=== PATIENT | male | born 1985 | race Caucasian/White ===

== ENCOUNTER 2020-08-18 07:27 | Outpatient (REF) | payer OTHER, SELFPAY | END 2020-08-18 07:28 | disposition home or self-care (01) | LOC: HO.LAB 07:27 | PROVIDERS: PCP Hospitalist; Visit Provider Internal Medicine | DX: Z20.822 Contact with and (suspected) exposure to COVID-19 (principal) | CPT/HCPCS: 36415; C9803; U0003 ==

== ENCOUNTER 2020-08-22 08:38 | Outpatient (REF) | payer OTHER, SELFPAY | END 2020-08-22 08:39 | disposition home or self-care (01) | LOC: HO.LAB 08:38 | PROVIDERS: PCP Hospitalist; Visit Provider Internal Medicine | DX: Z20.822 Contact with and (suspected) exposure to COVID-19 (principal) | CPT/HCPCS: 36415; C9803; U0003 ==

== ENCOUNTER 2020-08-27 16:54 | Outpatient (REF) | payer OTHER, SELFPAY | END 2020-08-27 16:55 | disposition home or self-care (01) | LOC: HO.LAB 16:54 | PROVIDERS: Visit Provider Internal Medicine | DX: Z20.822 Contact with and (suspected) exposure to COVID-19 (principal) | CPT/HCPCS: 36415; C9803; U0003 ==

== ENCOUNTER 2022-07-28 04:45 | Emergency (ER) | payer OTHER, SELFPAY ==
[2022-07-28 04:59] VITALS: BP 137/78; PULSE 65; RESP 17; TEMP 36.9; O2SAT 98; BMI 26.9
--- NOTE | 2022-07-28 05:37 | ED.URI ---
HPI - URI/Sore Throat General Chief Complaint: Upper Respiratory Symptoms Stated Complaint: flu like symptoms, tested - for COVID Time Seen by Provider: 07/28/22 05:37 Source: patient Mode of arrival: ambulatory Limitations: no limitations History of Present Illness HPI Narrative: Patient not vaccinated against COVID or flu complaining of mild nasal congestion had a COVID exposure at work no shortness of breath no fever or chills patient does have history of asthma symptoms started about 3 days ago Related Data Previous Rx's Medication Instructions Recorded codeine 10 mg-guaifenesin 100 mg/5 10 ml PO Q6H PRN cough #237 mL 07/28/22 mL oral liquid prednisone 20 mg tablet 40 mg PO DAILY #10 tabs 07/28/22 Allergies Allergy/AdvReac Type Severity Reaction Status Date / Time No Known Allergies* Allergy Uncoded 05/06/20 08:18 Review of Systems Review of Systems: Yes all other systems are reviewed and are negative PMFSH Social History Social History Advance Directives: No Advance Directives Information Provided: No Physical Exam Vital Signs: Vital Signs: Last Vital Signs Temp 98.4 F 07/28/22 04:59 Pulse 65 07/28/22 04:59 Resp 17 07/28/22 04:59 BP 137/78 07/28/22 04:59 Pulse Ox 98 07/28/22 04:59 O2 Del Method 07/28/22 04:59 BMI result Body Mass Index 26.9 Appearance: Alert. Oriented X3. No acute distress. ENT: Pharynx normal. Oral Mucosa moist Neck: Normal inspection. Neck supple. CVS: Normal heart rate and rhythm. Pulses normal. Respiratory: No respiratory distress. Equal air entry bilateral, no wheezing/rales/rhonchi Skin: Skin warm and dry. Normal skin color. Normal skin turgor. Extremities: No lower extremity edema. Neuro: Oriented X 3. Medical Decision Making Lab Data Labs: Lab Results 07/28/22 Range/Units 05:07 Influenza Type A (PCR) POSITIVE A (Negative) Influenza Type B (PCR) NEGATIVE (Negative) RSV RNA Qual (PCR) NEGATIVE (Negative) SARS-CoV-2 RNA (RT-PCR) NEGATIVE (Negative) Discharge Plan Discharge Clinical Impression: Influenza Patient Disposition: Home, Self-Care Instructions: Influenza (ED) Additional Instructions: Continue to use your inhaler Cough syrup and prednisone as prescribed Social distancing as advised Prescriptions: New prednisone 20 mg tablet 40 mg PO DAILY Qty: 10 0RF codeine-guaifenesin 10-100 mg/5 mL liquid 10 ml PO Q6H PRN (Reason: cough) Qty: 237 0RF
--- OUTSIDE RECORDS SUMMARY | 2022-07-28 05:46 | XMS_ITS | Continuity of Care Document ---
:1985 Author Organization [facility] Adult Address [address] [place] [address]- Care Team Providers Name Role Phone Domingo Le MD Primary Care Physician Encounter [facility] Date(s): 08/06/21 - 09/05/21 [facility] Adult [address] [place] [address]- Allergies, Adverse Reactions, Alerts No Known Allergies Immunizations Given and Recorded Vaccine Date Status Refusal Reason Hepatitis A Adult Vaccine1 08/08/14 Given Diphtheria/Tet/Pertussis, Acel (oldterm)2 08/08/14 Given Not Given Vaccine Date Status Refusal Reason Influenza Virus Vaccine (oldterm) 07/18/19 Not Given Patient Refuses Influenza Virus Vaccine (oldterm) 05/25/19 Not Given Patient Refuses 1Admin Note: at [id number] Note: at work Medications albuterol CFC free 90 mcg/inh inhalation aerosol 2, puffs, Inhalation, Every 4 hours, PRN, # 18 Gm, Refills 0, Tot. Refills 0, Maintenance, 12/07/19 12:18:00 EDT, Aerosol, Route to Pharmacy Electronically, [id number], [facility]/pharmacy #[id number], 186.5, cm, 07/18/19 15:37:00 EST, He... Start Date: 12/07/19 Status: OrderedMultivitamin 1 tab, By Mouth, Daily, 0 Refills, Maintenance, 09/09/20 15:37:00 EST, Partial fill upon patient request if the prescription is for a schedule II opioid drug. 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
--- OUTSIDE RECORDS SUMMARY | 2022-07-28 05:46 | XMS_ITS | Continuity of Care Document ---
:1985 Author Organization [facility] Address [address] [place] [address] Drive [address] [place] [address]- Care Team Providers Name Role Phone Colton Godinez MD Primary Care Physician [facility]counter [facility] Date(s): 09/24/20 - 10/24/[address] [place] [address] Allergies, Adverse Reactions, Alerts Substance Reaction Severity Status NKA Active Immunizations Given and Recorded Vaccine Date Status Refusal Reason Hepatitis A Adult Vaccine1 08/08/14 Given Diphtheria/Tet/Pertussis, Acel (oldterm)2 08/08/14 Given Not Given Vaccine Date Status Refusal Reason Influenza Virus Vaccine (oldterm) 07/18/19 Not Given Patient Refuses Influenza Virus Vaccine (oldterm) 05/25/19 Not Given Patient Refuses 1Admin Note: at [email or web address] Note: at work Medications albuterol CFC free 90 mcg/inh inhalation aerosol 2, puffs, Inhalation, Every 4 hours, PRN, # 18 Gm, Refills 0, Tot. Refills 0, Maintenance, 12/07/19 12:18:00 EDT, Aerosol, Route to Pharmacy Electronically, [id number], [facility]/pharmacy #[id number], 186.5, cm, 07/18/19 15:37:00 EST, He... Start Date: 12/07/19 Status: OrderedColace sodium 100 mg oral capsule 100 mg, 1, capsule, By Mouth, 2 times a day, PRN, # 60 capsule, Refills 6, Tot. Refills 6, Maintenance, for constipation, 09/16/20 7:33:00 EST, Route to Pharmacy Electronically, [facility]/pharmacy #[id number], Partial fill upon patient request if the prescription... Start Date: 09/16/20 Stop Date: 04/14/21 Status: OrderedMisc Rx nootropic- supplement 1 tab, By Mouth, Daily, Refills 0, Maintenance, 09/09/20 15:38:00 EST, Supply Start Date: 09/09/20 Status: OrderedMultivitamin 1 tab, By Mouth, Daily, 0 Refills, Maintenance, 09/09/20 15:37:00 EST, Partial fill upon patient request if the prescription is for a schedule II opioid drug. Start Date: 09/09/20 Status: OrderedValium 5 mg oral tablet 5 mg, 1, tablet, By Mouth, Every 8 hours, PRN, 1 TABLET EVERY 8 HOURS FOR ANAL SPASM DO NOT TAKE AT THE SAME TIME OXYCODONE, # 42 tablet, Refills 0, Tot. Refills 0, Maintenance, Spasm, 09/16/20 7:33:00 EST, Route to Pharmacy Electronically, [facility] Start Date: 09/16/20 Stop Date: 09/30/20 Status: Ordered Problem List Condition Effective Dates [...]
--- OUTSIDE RECORDS SUMMARY | 2022-07-28 05:46 | XMS_ITS | Continuity of Care Document ---
:1985 Author Organization [facility] Address [address] [place] [address]- Care Team Providers Name Role Phone Herbert FARIA, Colton Ricardo Primary Care Physician Encounter [facility] Date(s): 06/06/19 - 08/08/[address] [address]- [facility] Attending Physician: Silvio Foss MD Allergies, Adverse Reactions, Alerts Substance Reaction Severity Status NKA Active Immunizations Given and Recorded Vaccine Date Status Refusal Reason Hepatitis A Adult Vaccine1 08/08/14 Given Diphtheria/Tet/Pertussis, Acel (oldterm)2 08/08/14 Given Not Given Vaccine Date Status Refusal Reason Influenza Virus Vaccine (oldterm) 07/18/19 Not Given Patient Refuses Influenza Virus Vaccine (oldterm) 05/25/19 Not Given Patient Refuses 1Admin Note: at [id number] Note: at work Medications Azithromycin 5 Day Dose Pack 250 mg oral tablet 1 pack/packet, By Mouth, Once, as directed on package labeling, # 6 tablet, 0 Refills, Soft Stop, 07/18/19 15:48:25 EST, Tablet, 186.5, cm, 07/18/19 15:37:37 EST, Height Start Date: 07/18/19 Status: Ordered Problem List Condition Effective Dates [...]
--- OUTSIDE RECORDS SUMMARY | 2022-07-28 05:46 | XMS_ITS | Continuity of Care Document ---
:1985 Author Organization [facility] Adult Address [address] [place] [address]- Care Team Providers Name Role Phone Herbert FARIA, Colton Ricardo Primary Care Physician Encounter [facility] Date(s): 05/14/21 - 06/13/21 [facility] Adult [address] [place] [address]- Attending Physician: Ronan Arana Admitting Physician: Ronan Arana Referring Physician: AdmtrRonan Allergies, Adverse Reactions, Alerts Substance Reaction Severity Status NKA Active Immunizations Given and Recorded Vaccine Date Status Refusal Reason Hepatitis A Adult Vaccine1 08/08/14 Given Diphtheria/Tet/Pertussis, Acel (oldterm)2 08/08/14 Given Not Given Vaccine Date Status Refusal Reason Influenza Virus Vaccine (oldterm) 07/18/19 Not Given Patient Refuses Influenza Virus Vaccine (oldterm) 05/25/19 Not Given Patient Refuses 1Admin Note: at [id number] Note: at work Medications albuterol CFC free 90 mcg/inh inhalation aerosol 2, puffs, Inhalation, Every 4 hours, PRN, # 18 Gm, Refills 0, Tot. Refills 0, Maintenance, 12/07/19 12:18:00 EDT, Aerosol, Route to Pharmacy Electronically, [id number], [facility]/pharmacy #[id number], 186.5, cm, 07/18/19 15:37:00 EST, He... [...]
--- OUTSIDE RECORDS SUMMARY | 2022-07-28 05:46 | XMS_ITS | Continuity of Care Document ---
:1985 Author Organization [facility] Adult Address [address] [place] [address]- Care Team Providers Name Role Phone Domingo Le MD Primary Care Physician Encounter [facility] Date(s): 06/25/22 - 07/25/22 [facility] Adult [address] [place] [address]- Attending Physician: Ronan Arana Admitting Physician: AdmtrRonan Referring Physician: Admtr, ArNorma Allergies, Adverse Reactions, Alerts No Known Allergies Immunizations Given and Recorded Vaccine Date Status Refusal Reason Hepatitis A Adult Vaccine1 08/08/14 Given Diphtheria/Tet/Pertussis, Acel (oldterm)2 08/08/14 Given Not Given Vaccine Date Status Refusal Reason Influenza Virus Vaccine (oldterm) 07/18/19 Not Given Patient Refuses Influenza Virus Vaccine (oldterm) 05/25/19 Not Given Patient Refuses 1Admin Note: at [id number] Note: at work Medications albuterol CFC free 90 mcg/inh inhalation aerosol 2, puffs, Inhalation, Every 4 hours, PRN, # 18 Gm, Refills 2, Tot. Refills 2, Maintenance, 09/30/21 11:59:00 EST, Aerosol, Route to Pharmacy Electronically, [id number], [facility]/pharmacy #[id number], 187.96, cm, 05/14/21 12:29:00 EDT, H... Start Date: 09/30/21 Status: OrderedMultivitamin 1 tab, By Mouth, Daily, 0 Refills, Maintenance, 09/09/20 15:37:00 EST, Partial fill upon patient request if the prescription is for a schedule II opioid drug. Start Date: 09/09/20 Status: Ordered Problem List Condition Confirmation Course Effective Dates Status Health Stat us Informant Anal skin tag Confirmed Active Anterior romero Confirmed Active splints Chronic low back Confirmed Active pain History of epilepsy Confirmed Active - no sz since age 20, pubertal History of Confirmed Active pneumonia IBS (irritable Confirmed Active bowel syndrome) Lactose intolerance Confirmed Active Otitis media of Confirmed Active left ear Lumbar disc Confirmed Active herniation - L4/5 Reactive Confirmed Active hypoglycemia Left sided sciatica Confirmed Active Testicular mass Confirmed Active Social History Social History Type Response Smoking Status Former smoker entered on: 12/30/15 Sex Note Event Display: Ultrasound Pelvis, Non-BH Authored Date: Event Display: Ultrasound Abdomen, Non- Authored Date: Event Display: Non Lab Results Authored Date: Event Display: Non Lab Results Authored Date: Patient Care team information Care Team PersonnelName: Mimi FARIA, Domingo Meléndez Position: [facility] Primary Care Physician Member Role: PCP Address: Address: [address] [place] [address]- Care Team Related PersonsName: PHIL SOTO Address: home [address] [facility], [id number]
--- OUTSIDE RECORDS SUMMARY | 2022-07-28 05:46 | XMS_ITS | Continuity of Care Document ---
:1985 Author Organization [facility] Address [address] [place] [address] Drive [address] [place] [address]- Care Team Providers Name Role Phone Colton Godinez MD Primary Care Physician Encounter [facility] Date(s): 10/27/20 - 11/03/[address] [place] [address]- Encounter Diagnosis Anal skin tag (Discharge Diagnosis) - 10/27/20 Attending Physician: Silvio Foss MD Referring Physician: Colton Godinez MD Allergies, Adverse Reactions, Alerts Substance Reaction Severity Status NKA Active Immunizations Given and Recorded Vaccine Date Status Refusal Reason Hepatitis A Adult Vaccine1 08/08/14 Given Diphtheria/Tet/Pertussis, Acel (oldterm)2 08/08/14 Given Not Given Vaccine Date Status Refusal Reason Influenza Virus Vaccine (oldterm) 07/18/19 Not Given Patient Refuses Influenza Virus Vaccine (oldterm) 05/25/19 Not Given Patient Refuses 1Admin Note: at [id number] Note: at work Medications albuterol CFC free 90 mcg/inh inhalation aerosol 2, puffs, Inhalation, Every 4 hours, PRN, # 18 Gm, Refills 0, Tot. Refills 0, Maintenance, 12/07/19 12:18:00 EDT, Aerosol, Route to Pharmacy Electronically, [id number], [facility]/pharmacy #[id number], 186.5, cm, 07/18/19 15:37:00 EST, He... Start Date: 12/07/19 Status: OrderedColace sodium 100 mg oral capsule 100 mg, 1, capsule, By Mouth, 2 times a day, PRN, # 60 capsule, Refills 6, Tot. Refills 6, Maintenance, for constipation, 09/16/20 7:33:00 EST, Route to Pharmacy Electronically, [facility]/pharmacy #[id number], Partial fill upon patient request if [...] herniation - Active L4/5(Confirmed) Testicular mass(Confirmed) Active Diagnosis Diagnosis Type Effective Dates Health Status Clinical In formant Service Anal skin tag Discharge 10/27/20 Diagnosis Social History Social History Type Response Smoking Status Former smoker entered on: 12/30/15 Sex
--- OUTSIDE RECORDS SUMMARY | 2022-07-28 05:46 | XMS_ITS | Continuity of Care Document ---
:1985 Author Organization [facility] Adult Address [address] [place] [address]- Care Team Providers Name Role Phone Mimi FARIA, Domingo Meléndez Primary Care Physician Encounter [facility] Date(s): 12/04/21 - 12/11/21 [facility] Adult [address] [place] [address]- Encounter Diagnosis Dry skin (Discharge Diagnosis) - 12/08/21 Attending Physician: Nicole Caceres Referring Physician: Domingo Le MD Allergies, Adverse Reactions, Alerts No Known Allergies Immunizations Given and Recorded Vaccine Date Status Refusal Reason Hepatitis A Adult Vaccine1 08/08/14 Given Diphtheria/Tet/Pertussis, Acel (oldterm)2 08/08/14 Given Not Given Vaccine Date Status Refusal Reason Influenza Virus Vaccine (oldterm) 07/18/19 Not Given Patient Refuses Influenza Virus Vaccine (oldterm) 05/25/19 Not Given Patient Refuses 1Admin Note: at [id number] Note: at work Medications albuterol CFC free 90 mcg/inh inhalation aerosol 2, puffs, Inhalation, Every 4 hours, PRN, # 18 Gm, Refills 2, Tot. Refills 2, Maintenance, 09/30/21 11:59:00 EST, Aerosol, Route to Pharmacy Electronically, [id number], [facility]/pharmacy #[id number], 187.96, cm, 05/14/21 12:29:00 EDT, [...] Diagnosis Type Effective Dates Health Status Clinical Serv ice Informant Dry skin Discharge 12/08/21 Diagnosis Vital Signs Most recent to oldest [Reference Range]: 1 Height 187.96 cm (12/04/21 12:46 PM) Weight 99.4 kg (12/04/21 12:46 PM) Oxygen Saturation [94-100 %] 100 % (12/04/21 12:46 PM) Pulse Rate [55-90 bpm] 72 bpm (12/04/21 12:46 PM) Body Mass Index [18.5-24.99] 28.14 *H* (12/04/21 12:46 PM) Blood Pressure [90-138/55-84 mm Hg] 125/70 mm Hg (12/04/21 12:46 PM) Weight Obtained Via Standing scale (12/04/21 12:46 PM) Social History Social History Type Response Smoking Status Former smoker entered on: 12/30/15 Sex
--- OUTSIDE RECORDS SUMMARY | 2022-07-28 05:46 | XMS_ITS | Continuity of Care Document ---
:1985 Author Organization [facility] Adult Address [address] [place] [address]- Care Team Providers Name Role Phone Colton Godinez MD Primary Care Physician [facility]counter [facility] Date(s): 12/05/19 - 12/12/19 [facility] Adult [address] [place] [address]- [facility] Attending Physician: Colton Godinez MD Allergies, Adverse Reactions, Alerts Substance Reaction Severity Status NKA Active Immunizations Given and Recorded Vaccine Date Status Refusal Reason Hepatitis A Adult Vaccine1 08/08/14 Given Diphtheria/Tet/Pertussis, Acel (oldterm)2 08/08/14 Given Not Given Vaccine Date Status Refusal Reason Influenza Virus Vaccine (oldterm) 07/18/19 Not Given Patient Refuses Influenza Virus Vaccine (oldterm) 05/25/19 Not Given Patient Refuses 1Admin Note: at [id number] Note: at work Medications albuterol CFC free 90 mcg/inh inhalation aerosol 2, puffs, Inhalation, Every 4 hours, PRN, # 18 Gm, Refills 0, Tot. Refills 0, Maintenance, 12/07/19 12:18:00 EDT, Aerosol, Route to Pharmacy Electronically, [id number], [facility]/pharmacy #[id number], 186.5, cm, 07/18/19 15:37:00 EST, He... Start Date: 12/07/19 Status: Ordered Problem List Condition Effective Dates [...]
--- OUTSIDE RECORDS SUMMARY | 2022-07-28 05:46 | XMS_ITS | Continuity of Care Document ---
:1985 Author Organization [facility] Adult Address [address] [place] [address]- Care Team Providers Name Role Phone Colton Godinez MD Primary Care Physician Encounter [facility] Date(s): 12/12/20 - 01/11/21 [facility] Adult [address] [place] [address]- Attending Physician: AdmRonan franklin Admitting Physician: AdmtrRonan Referring Physician: Admtr, ArNorma Allergies, Adverse Reactions, Alerts Substance Reaction Severity Status NKA Active Immunizations Given and Recorded Vaccine Date Status Refusal Reason Hepatitis A Adult Vaccine1 08/08/14 Given Diphtheria/Tet/Pertussis, Acel (oldterm)2 08/08/14 Given Not Given Vaccine Date Status Refusal Reason Influenza Virus Vaccine (oldterm) 07/18/19 Not Given Patient Refuses Influenza Virus Vaccine (oldterm) 05/25/19 Not Given Patient Refuses 1Admin Note: at [id number] Note: at work Medications albuterol CFC free 90 mcg/inh inhalation aerosol 2, puffs, Inhalation, Every 4 hours, PRN, # 18 Gm, Refills 0, Tot. Refills 0, Maintenance, 12/07/19 12:18:00 EDT, Aerosol, Route to Pharmacy Electronically, [id number], [facility]/pharmacy #[id number], 186.5, cm, 07/18/19 15:37:00 EST, He... Start Date: 12/07/19 Status: OrderedColace sodium 100 mg oral capsule 100 mg, 1, capsule, By Mouth, 2 times a day, PRN, # 60 capsule, Refills 6, Tot. Refills 6, Maintenance, for constipation, 09/16/20 7:33:00 EST, Route to Pharmacy Electronically, [facility]/pharmacy #[id number], Partial fill upon patient request [...]
--- OUTSIDE RECORDS SUMMARY | 2022-07-28 05:46 | XMS_ITS | Continuity of Care Document ---
:1985 Author Organization [facility] Address [address] [place] [address] Drive [address] [place] [address]- Care Team Providers Name Role Phone Colton Godinez MD Primary Care Physician Encounter [facility] Date(s): 11/15/19 - 11/25/[address] [place] [address]- [facility] Attending Physician: Ronan Arana Admitting Physician: Ronan [...] Not Given Patient Refuses 1Admin Note: at [id number] Note: at work Medications Azithromycin 5 Day [...]
--- OUTSIDE RECORDS SUMMARY | 2022-07-28 05:46 | XMS_ITS | Continuity of Care Document ---
:1985 Author Organization [facility] Adult Address [address] [place] [address]- Care Team Providers Name Role Phone Domingo Le MD Primary Care Physician Encounter [facility] Date(s): 04/28/22 - 05/28/22 [facility] Adult [address] [place] [address]- Allergies, Adverse Reactions, Alerts No Known Allergies Immunizations Given and Recorded Vaccine Date Status Refusal Reason Hepatitis A Adult Vaccine1 08/08/14 Given Diphtheria/Tet/Pertussis, Acel (oldterm)2 08/08/14 Given Not Given Vaccine Date Status Refusal Reason Influenza Virus Vaccine (oldterm) 07/18/19 Not Given Patient Refuses Influenza Virus Vaccine (oldterm) 05/25/19 Not Given Patient Refuses 1Admin Note: at [id number] Note: at work Medications albuterol CFC free 90 mcg/inh inhalation aerosol 2, puffs, Inhalation, Every 4 hours, PRN, # 18 Gm, Refills 2, Tot. Refills 2, Maintenance, 09/30/21 11:59:00 EST, Aerosol, Route to Pharmacy Electronically, [id number], [facility]/pharmacy #[id number], 187.96, cm, 05/14/21 12:29:00 EDT, H... [...] Status Former smoker entered on: 12/30/15 Sex Patient Care team information PersonnelName: Mimi FARIA, Domingo Meléndez Address: Address: [address] [place] [id number]
--- OUTSIDE RECORDS SUMMARY | 2022-07-28 05:46 | XMS_ITS | Continuity of Care Document ---
:1985 Author Organization [facility] Adult Address [address] [place] [address]- Care Team Providers Name Role Phone Colton Godinez MD Primary Care Physician Encounter [facility] Date(s): 07/18/19 - 07/25/19 [facility] Adult [address] [place] [address]- [facility] Encounter Diagnosis Atypical pneumonia (Discharge Diagnosis) - 07/18/19 Attending Physician: Colton Godinez MD Allergies, Adverse Reactions, Alerts Substance Reaction Severity Status NKA Active Immunizations Given and Recorded Vaccine Date Status Refusal Reason Hepatitis A Adult Vaccine1 08/08/14 Given Diphtheria/Tet/Pertussis, Acel (oldterm)2 08/08/14 Given Not Given Vaccine Date Status Refusal Reason Influenza Virus Vaccine (oldterm) 07/18/19 Not Given Patient Refuses Influenza Virus Vaccine (oldterm) 05/25/19 Not Given Patient Refuses 1Admin Note: at [id number] Note: at work Medications Azithromycin 5 Day [...] Dates Health Status Clinical In formant Service Atypical Discharge 07/18/19 pneumonia Diagnosis Vital Signs Most recent to oldest [Reference Range]: 1 Height 186.5 cm (07/18/19 3:37 PM) Weight 103.6 kg (07/18/19 3:37 PM) Oxygen Saturation [94-100 %] 99 % (07/18/19 3:37 PM) Pulse Rate [55-90 bpm] 88 bpm (07/18/19 3:37 PM) Body Mass Index [18.5-24.99] 29.79 *H* (07/18/19 3:37 PM) Blood Pressure [90-138/55-84 mm Hg] 110/70 mm Hg (07/18/19 3:37 PM) Temperature [96.8-100.4 DegF] 98.3 DegF (07/18/19 3:37 PM) Mode of Delivery (Oxygen) Room air (07/18/19 3:37 PM) Blood pressure sites Arm, left (07/18/19 3:37 PM) Temperature Route Oral (07/18/19 3:37 PM) Weight Obtained Via Standing scale (07/18/19 3:37 PM) Social History Social History Type Response Smoking Status Former smoker entered on: 12/30/15 Sex
--- OUTSIDE RECORDS SUMMARY | 2022-07-28 05:46 | XMS_ITS | Continuity of Care Document ---
:1985 Author Organization [facility] [place] [facility] Address [address] [place] [address]- Care Team Providers Name Role Phone Herbert FARIA, Colton Ricardo Primary Care Physician [facility]): 12[facility]19 - 01/10/20 [facility] [place] Adult [address] [place] [address]- [facility] Attending Physician: Ronan Arana Admitting Physician: Ronan Arana Referring Physician: trRonan Allergies, Adverse Reactions, Alerts Substance Reaction Severity Status NKA Active Immunizations Given and Recorded Vaccine Date Status Refusal Reason Hepatitis A Adult Vaccine1 08/08/14 Given Diphtheria/Tet/Pertussis, Acel (oldterm)2 08/08/14 Given Not Given Vaccine Date Status Refusal Reason Influenza Virus Vaccine (oldterm) 07/18/19 Not Given Patient Refuses Influenza Virus Vaccine (oldterm) 05/25/19 Not Given Patient Refuses 1Admin Note: at [id number] Note: at work Medications albuterol CFC free 90 mcg/inh inhalation aerosol 2, puffs, Inhalation, Every 4 hours, PRN, # 18 Gm, Refills 0, Tot. Refills 0, Maintenance, 12/07/19 12:18:00 EDT, Aerosol, Route to Pharmacy Electronically, [id number], [facility]/pharmacy #[id number], 186.5, cm, 07/18/19 15:37:00 [...]
--- OUTSIDE RECORDS SUMMARY | 2022-07-28 05:46 | XMS_ITS | Continuity of Care Document ---
:1985 Author Organization [facility] Address [address] [place] [address] Drive [address] [place] [address]- Care Team Providers Name Role Phone Colton Godinez MD Primary Care Physician [facility] Date(s): 10/27/20 - 11/26/[address] [place] [address]- Attending Physician: Ronan Arana Admitting Physician: Ronan [...] Not Given Patient Refuses 1Admin Note: at [id number] Note: at work Medications albuterol CFC free 90 mcg/inh inhalation aerosol 2, puffs, Inhalation, Every 4 hours, PRN, # 18 Gm, Refills 0, Tot. Refills 0, Maintenance, 12/07/19 12:18:00 EDT, Aerosol, Route to Pharmacy Electronically, [id number], [facility]/pharmacy #[id number], 186.5, cm, 07/18/19 15:37:00 EST, He... Start Date: 12/07/19 Status: OrderedColace sodium 100 mg oral capsule 100 mg, 1, capsule, By Mouth, 2 times a day, PRN, # 60 capsule, Refills 6, Tot. Refills 6, Maintenance, for constipation, 09/16/20 7:33:00 EST, Route to Pharmacy Electronically, [id number], Partial fill upon patient request if [...]
--- OUTSIDE RECORDS SUMMARY | 2022-07-28 05:46 | XMS_ITS | Continuity of Care Document ---
:1985 Author Organization [facility] Adult Address [address] [place] [address]- Care Team Providers Name Role Phone Herbert FARIA, Colton Ricardo Primary Care Physician [facility] Date(s): 04/04/20 - 05/04/20 [facility] Adult [address] [place] [address]- [facility] Attending Physician: Ronan Arana Admitting Physician: Ronan [...] Not Given Patient Refuses 1Admin Note: at [id number] Note: at work Medications albuterol CFC free 90 mcg/inh inhalation aerosol 2, puffs, Inhalation, Every 4 hours, PRN, # 18 Gm, Refills 0, Tot. Refills 0, Maintenance, 12/07/19 12:18:00 EDT, Aerosol, Route to Pharmacy Electronically, [id number], [facility]/pharmacy #[id number], 186.5, cm, 07/18/19 15:37:00 EST, He... Start Date: 12/07/19 Status: OrderedCipro 500 mg oral tablet 1 tablet = 500 mg, By Mouth, Every 12 hours, for 42 days, # 84 tablet, 0 Refills, Acute 10/09/20 11:53:00 EDT, 04/04/20 11:53:00 EDT, Tablet, [id number], 186.5, cm, 04/04/20 9:56:00 EDT, Height Start Date: 04/04/20 Stop Date: 05/16/20 Status: Ordered Problem List Condition Effective Dates [...]
--- OUTSIDE RECORDS SUMMARY | 2022-07-28 05:46 | XMS_ITS | Continuity of Care Document ---
:1985 Author Organization [facility] Adult Address [address] [place] [address]- Care Team Providers Name Role Phone Herbert FARIA, Colton Ricardo Primary Care Physician [facility] Date(s): 03/11/20 - 04/10/20 [facility] Adult [address] [place] [address]- [facility] Allergies, Adverse Reactions, Alerts Substance Reaction Severity Status NKA Active Immunizations Given and Recorded Vaccine Date Status Refusal Reason Hepatitis A Adult Vaccine1 08/08/14 Given Diphtheria/Tet/Pertussis, Acel (oldterm)2 08/08/14 Given Not Given Vaccine Date Status Refusal Reason Influenza Virus Vaccine (oldterm) 07/18/19 Not Given Patient Refuses Influenza Virus Vaccine (oldterm) 05/25/19 Not Given Patient Refuses 1Admin Note: at [id number] Note: at work Medications albuterol CFC free 90 mcg/inh inhalation aerosol 2, puffs, Inhalation, Every 4 hours, PRN, # 18 Gm, Refills 0, Tot. Refills 0, Maintenance, 12/07/19 12:18:00 EDT, Aerosol, Route to Pharmacy Electronically, [id number], [facility]/pharmacy #[id number], 186.5, cm, 07/18/19 15:37:00 EST, He... Start Date: 12/07/19 Status: OrderedCipro 500 mg oral tablet 1 tablet = 500 mg, By Mouth, Every 12 hours, for 42 days, # 84 tablet, 0 Refills, Acute 05/16/20 11:53:00 EDT, 04/04/20 11:53:00 EDT, Tablet, [facility] [...]
--- OUTSIDE RECORDS SUMMARY | 2022-07-28 05:46 | XMS_ITS | Continuity of Care Document ---
:1985 Author Organization [facility] Adult Address [address] [place] [address]- Care Team Providers Name Role Phone Mimi FARIA, Domingo Meléndez Primary Care Physician [facility] Date(s): 09/30/21 - 10/30/21 [facility] Adult [address] [place] [address]- Allergies, Adverse Reactions, Alerts No Known Allergies Immunizations Given and Recorded Vaccine Date Status Refusal Reason Hepatitis A Adult Vaccine1 08/08/14 Given Diphtheria/Tet/Pertussis, Acel (oldterm)2 08/08/14 Given Not Given Vaccine Date Status Refusal Reason Influenza Virus Vaccine (oldterm) 07/18/19 Not Given Patient Refuses Influenza Virus Vaccine (oldterm) 05/25/19 Not Given Patient Refuses 1Admin Note: at [id number] Note: at work Medications albuterol CFC free 90 mcg/inh inhalation aerosol 2, puffs, Inhalation, Every 4 hours, PRN, # 18 Gm, Refills 2, Tot. Refills 2, Maintenance, 09/30/21 11:59:00 EST, Aerosol, Route to Pharmacy Electronically, [id number], [facility]/pharmacy #[id number], 187.96, cm, 05/14/21 12:29:00 EDT, H... [...]
--- OUTSIDE RECORDS SUMMARY | 2022-07-28 05:46 | XMS_ITS | Continuity of Care Document ---
:1985 Author Organization [facility] Address [address] [place] [address]- Care Team Providers Name Role Phone Herbert FARIA, Colton Ricardo Primary Care Physician [facility] Date(s): 06/06/19 - 08/08/[address] [address]- [facility] Attending Physician: Silvio Foss MD Admitting Physician: Silvio Foss MD Allergies, Adverse Reactions, Alerts Substance Reaction Severity Status NKA Active Immunizations Given and Recorded Vaccine Date Status Refusal Reason Hepatitis A Adult Vaccine1 08/08/14 Given Diphtheria/Tet/Pertussis, Acel (oldterm)2 08/08/14 Given Not Given Vaccine Date Status Refusal Reason Influenza Virus Vaccine (oldterm) 07/18/19 Not Given Patient Refuses Influenza Virus Vaccine (oldterm) 05/25/19 Not Given Patient Refuses 1Admin Note: at [id number] Note: at work Medications Azithromycin 5 Day [...]
--- OUTSIDE RECORDS SUMMARY | 2022-07-28 05:46 | XMS_ITS | Continuity of Care Document ---
:1985 Author Organization [address] [place] [address]- Care Team Providers Name Role Phone Herbert FARIA, Colton Ricardo Primary Care Physician [facility]s): 08/17/19 - 12/15/[address] [place] [address]- [facility] Attending Physician: Pipo FARIA, Silvio Glasgow Allergies, Adverse Reactions, Alerts Substance Reaction Severity Status NKA Active Immunizations Given and Recorded Vaccine Date Status Refusal Reason Hepatitis A Adult Vaccine1 08/08/14 Given Diphtheria/Tet/Pertussis, Acel (oldterm)2 08/08/14 Given Not Given Vaccine Date Status Refusal Reason Influenza Virus Vaccine (oldterm) 07/18/19 Not Given Patient Refuses Influenza Virus Vaccine (oldterm) 05/25/19 Not Given Patient Refuses 1Admin Note: at [id number] Note: at work Medications albuterol CFC free 90 mcg/inh inhalation aerosol 2, puffs, Inhalation, Every 4 hours, PRN, # 18 Gm, Refills 0, Tot. Refills 0, Maintenance, 12/07/19 12:18:00 EDT, Aerosol, Route to Pharmacy Electronically, [id number], [facility]/pharmacy #[id number], 186.5, cm, 07/18/19 15:37:00 EST, [...]
--- OUTSIDE RECORDS SUMMARY | 2022-07-28 05:46 | XMS_ITS | Continuity of Care Document ---
:1985 Author Organization [facility] Address [address] [place] [address]- Care Team Providers Name Role Phone Herbert FARIA, Colton Ricardo Primary Care Physician [facility] Date(s): 08/06/19 - 10/20/[address] [address]- [facility] Attending Physician: Silvio Foss MD Admitting Physician: [...] Not Given Patient Refuses 1Admin Note: at [id number] Note: at work Medications Azithromycin 5 Day [...]
--- OUTSIDE RECORDS SUMMARY | 2022-07-28 05:46 | XMS_ITS | Continuity of Care Document ---
:1985 Author Organization [facility] Adult Address [address] [place] [address]- Care Team Providers Name Role Phone Mimi FARIA, Domingo Meléndez Primary Care Physician [facility] Date(s): 12/04/21 - 01/03/22 [facility] Adult [address] [place] [address]- Attending Physician: Ronan Arana Admitting Physician: Ronan Arana Referring Physician: AdmtrRonan Allergies, Adverse Reactions, Alerts No Known Allergies Immunizations Given and Recorded Vaccine Date Status Refusal Reason Hepatitis A Adult Vaccine1 08/08/14 Given Diphtheria/Tet/Pertussis, Acel (oldterm)2 08/08/14 Given Not Given Vaccine Date Status Refusal Reason Influenza Virus Vaccine (oldterm) 07/18/19 Not Given Patient Refuses Influenza Virus Vaccine (oldterm) 05/25/19 Not Given Patient Refuses 1Admin Note: at [id number] Note: at work Medications albuterol CFC free 90 mcg/inh inhalation aerosol 2, puffs, Inhalation, Every 4 hours, PRN, # 18 Gm, Refills 2, Tot. Refills 2, Maintenance, 09/30/21 11:59:00 EST, Aerosol, Route to Pharmacy Electronically, [id number], [facility]/pharmacy #[id number], 187.96, cm, 05/14/21 12:29:00 EDT, [...]
--- OUTSIDE RECORDS SUMMARY | 2022-07-28 05:46 | XMS_ITS | Continuity of Care Document ---
:1985 Author Organization [facility] Address [address] [place] [address]- Care Team Providers Name Role Phone Colton Godinez MD Primary Care Physician [facility] Date(s): 12/11/19 - 12/18/19 [facility] Adult [address] [place] [address]- [place] Encounter Diagnosis Respiratory illness (Discharge Diagnosis) - 12/11/19 Attending Physician: Colton Godinez MD Allergies, Adverse Reactions, Alerts Substance Reaction Severity Status NKA Active Immunizations Given and Recorded Vaccine Date Status Refusal Reason Hepatitis A Adult Vaccine1 08/08/14 Given Diphtheria/Tet/Pertussis, Acel (oldterm)2 08/08/14 Given Not Given Vaccine Date Status Refusal Reason Influenza Virus Vaccine (oldterm) 07/18/19 Not Given Patient Refuses Influenza Virus Vaccine (oldterm) 05/25/19 Not Given Patient Refuses 1Admin Note: at [id number] Note: at work Medications albuterol CFC free 90 mcg/inh inhalation aerosol 2, puffs, Inhalation, Every 4 hours, PRN, # 18 Gm, Refills 0, Tot. Refills 0, Maintenance, 12/07/19 12:18:00 EDT, Aerosol, Route to Pharmacy Electronically, [id number], [facility]/pharmacy #[id number], 186.5, cm, 07/18/19 [...] Active Diagnosis Diagnosis Type Effective Dates Health Clinical Infor mant Status Service Respiratory Discharge 12/11/19 illness Diagnosis Social History Social History Type Response Smoking Status Former smoker entered on: 12/30/15 Sex
--- OUTSIDE RECORDS SUMMARY | 2022-07-28 05:46 | XMS_ITS | Continuity of Care Document ---
:1985 Author Organization [facility] Address [address] [place] [address]- Care Team Providers Name Role Phone Colton Godinez MD Primary Care Physician [facility] Date[facility]s): 06/15/19 - 10/13/[address] [place] [address]- [facility] Attending Physician: Pipo FARIA, Silvio Glasgow Referring Physician: Colton Godinez MD Allergies, Adverse Reactions, Alerts Substance Reaction Severity Status NKA Active Immunizations Given and Recorded Vaccine Date Status Refusal Reason Hepatitis A Adult Vaccine1 08/08/14 Given Diphtheria/Tet/Pertussis, Acel (oldterm)2 08/08/14 Given Not Given Vaccine Date Status Refusal Reason Influenza Virus Vaccine (oldterm) 07/18/19 Not Given Patient Refuses Influenza Virus Vaccine (oldterm) 05/25/19 Not Given Patient Refuses 1Admin Note: at [id number] Note: at work Medications Azithromycin 5 Day [...]
--- OUTSIDE RECORDS SUMMARY | 2022-07-28 05:46 | XMS_ITS | Continuity of Care Document ---
:1985 Author Organization [facility] Adult Address [address] [place] [address]- Care Team Providers Name Role Phone Domingo Le MD Primary Care Physician Encounter [facility] Date(s): 06/25/22 - 07/02/22 [facility] Adult [address] [place] [address]- Encounter Diagnosis Cough (Discharge Diagnosis) - 06/25/22 Attending Physician: Nicole Caceres Allergies, Adverse Reactions, Alerts No Known Allergies Immunizations Given and Recorded Vaccine Date Status Refusal Reason Hepatitis A Adult Vaccine1 08/08/14 Given Diphtheria/Tet/Pertussis, Acel (oldterm)2 08/08/14 Given Not Given Vaccine Date Status Refusal Reason Influenza Virus Vaccine (oldterm) 07/18/19 Not Given Patient Refuses Influenza Virus Vaccine (oldterm) 05/25/19 Not Given Patient Refuses 1Admin Note: at [id number] Note: at work Medications albuterol CFC free 90 mcg/inh inhalation aerosol 2, puffs, Inhalation, Every 4 hours, PRN, # 18 Gm, Refills 2, Tot. Refills 2, Maintenance, 09/30/21 11:59:00 EST, Aerosol, Route to Pharmacy Electronically, [id number], 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 Diagnosis Diagnosis Type Effective Dates Health Status Clinical Serv ice Informant Cough Discharge 06/25/22 Diagnosis Vital Signs Most recent to oldest [Reference Range]: 1 Height 187.96 cm (06/25/22 1:05 PM) Social History Social History Type Response Smoking Status Former smoker entered on: 12/30/15 Sex Patient Care team information Care Team PersonnelName: Domingo Le MD Position: [facility] Primary Care Physician Member Role: PCP Address: Address: [address] [place] [address]- Care Team Related PersonsName: PHIL SOTO Address: home [address] [place] [address], [id number]
--- OUTSIDE RECORDS SUMMARY | 2022-07-28 05:46 | XMS_ITS | Continuity of Care Document ---
:1985 Author Organization [facility] Adult Address [address] [place] [address]- Care Team Providers Name Role Phone Colton Godinez MD Primary Care Physician [facility] Date[facility]s): 07/18/19 - 07/28/19 [facility] Adult [address] [place] [address]- [facility] Attending Physician: Ronan Arana Admitting Physician: AdmtrRonan Referring Physician: AdmtrRonan Allergies, Adverse Reactions, Alerts Substance Reaction Severity Status NKA Active Immunizations Given and Recorded Vaccine Date Status Refusal Reason Hepatitis A Adult Vaccine1 08/08/14 Given Diphtheria/Tet/Pertussis, Acel (oldterm)2 08/08/14 Given Not Given Vaccine Date Status Refusal Reason Influenza Virus Vaccine (oldterm) 07/18/19 Not Given Patient Refuses Influenza Virus Vaccine (oldterm) 05/25/19 Not Given Patient Refuses 1Admin Note: at [id number] Note: at work Medications Azithromycin 5 Day [...]
--- OUTSIDE RECORDS SUMMARY | 2022-07-28 05:46 | XMS_ITS | Continuity of Care Document ---
:1985 Author Organization [facility] [place] [facility] Address [address] [place] [address]- Care Team Providers Name Role Phone Colton Godinez MD Primary Care Physician Encounter [facility] Date(s): 12/12/20 - 12/19/20 [facility] [place] Adult [address] [place] [address]- Encounter Diagnosis Tendinitis of left rotator cuff (Discharge Diagnosis) - 12/12/20 Attending Physician: Colton Godinez MD Allergies, Adverse Reactions, Alerts Substance Reaction Severity Status NKA Active Immunizations Given and Recorded Vaccine Date Status Refusal Reason Hepatitis A Adult Vaccine1 08/08/14 Given Diphtheria/Tet/Pertussis, Acel (oldterm)2 08/08/14 Given Not Given Vaccine Date Status Refusal Reason Influenza Virus Vaccine (oldterm) 07/18/19 Not Given Patient Refuses Influenza Virus Vaccine (oldterm) 05/25/19 Not Given Patient Refuses 1Admin Note: at [id number] Note: at work Medications albuterol CFC free 90 mcg/inh inhalation aerosol 2, puffs, Inhalation, Every 4 hours, PRN, # 18 Gm, Refills 0, Tot. Refills 0, Maintenance, 12/07/19 12:18:00 EDT, Aerosol, Route to Pharmacy Electronically, [id number], [facility]/pharmacy #[id number], 186.5, cm, 07/18/19 15:37:00 [...] Dates Health Clinical Infor mant Status Service Tendinitis of Discharge 12/12/20 left rotator cuff Diagnosis Vital Signs Most recent to oldest [Reference Range]: 1 Height 187.96 cm (12/12/20 11:03 AM) Weight 98.1 kg (12/12/20 11:03 AM) Oxygen Saturation [94-100 %] 98 % (12/12/20 11:03 AM) Pulse Rate [55-90 bpm] 88 bpm (12/12/20 11:03 AM) Body Mass Index [18.5-24.99] 27.77 *H* (12/12/20 11:03 AM) Blood Pressure [90-138/55-84 mm Hg] 114/64 mm Hg (12/12/20 11:03 AM) Temperature [96.8-100.4 DegF] 98.4 DegF (12/12/20 11:03 AM) Mode of Delivery (Oxygen) Room air (12/12/20 11:03 AM) Blood pressure sites Arm, left (12/12/20 11:03 AM) Temperature Route Oral (12/12/20 11:03 AM) Weight Obtained Via Standing scale (12/12/20 11:03 AM) Social History Social History Type Response Smoking Status Former smoker entered on: 12/30/15 Sex
--- OUTSIDE RECORDS SUMMARY | 2022-07-28 05:46 | XMS_ITS | Continuity of Care Document ---
:1985 Author Organization [facility] Address [address] [place] [address] [address] [place] [address]- Care Team Providers Name Role Phone Colton Godinez MD Primary Care Physician [facility] Date(s): 09/01/20 - 10/01/[address] [place] [address] Allergies, Adverse Reactions, Alerts Substance Reaction Severity Status NKA Active Immunizations Given and Recorded Vaccine Date Status Refusal Reason Hepatitis A Adult Vaccine1 08/08/14 Given Diphtheria/Tet/Pertussis, Acel (oldterm)2 08/08/14 Given Not Given Vaccine Date Status Refusal Reason Influenza Virus Vaccine (oldterm) 07/18/19 Not Given Patient Refuses Influenza Virus Vaccine (oldterm) 05/25/19 Not Given Patient Refuses 1Admin Note: at [id number] Note: at work Medications albuterol CFC free 90 mcg/inh inhalation aerosol 2, puffs, Inhalation, Every 4 hours, PRN, # 18 Gm, Refills 0, Tot. Refills 0, Maintenance, 12/07/19 12:18:00 EDT, Aerosol, Route to Pharmacy Electronically, [id number], [facility]/pharmacy #[id number], 186.5, cm, 07/18/19 15:37:00 EST, He... Start Date: 12/07/19 Status: OrderedColace sodium 100 mg oral capsule 100 mg, 1, capsule, By Mouth, 2 times a day, PRN, # 60 capsule, Refills 6, Tot. Refills 6, Maintenance, for constipation, 09/16/20 7:33:00 EST, Route to Pharmacy Electronically, [facility]/pharmacy #[id number], Partial fill upon patient request [...]
--- OUTSIDE RECORDS SUMMARY | 2022-07-28 05:46 | XMS_ITS | Continuity of Care Document ---
:1985 Author Organization [facility] Address [address] [place] [address] Drive [address] [place] [address]- Care Team Providers Name Role Phone Colton Godinez MD Primary Care Physician [facility]): 10/02/20 - 11/01/[address] [place] [id number] Allergies, Adverse Reactions, Alerts Substance Reaction Severity Status NKA Active Immunizations Given and Recorded Vaccine Date Status Refusal Reason Hepatitis A Adult Vaccine1 08/08/14 Given Diphtheria/Tet/Pertussis, Acel (oldterm)2 08/08/14 Given Not Given Vaccine Date Status Refusal Reason Influenza Virus Vaccine (oldterm) 07/18/19 Not Given Patient Refuses Influenza Virus Vaccine (oldterm) 05/25/19 Not Given Patient Refuses 1Admin Note: at [id number] Note: at work Medications albuterol CFC free 90 mcg/inh inhalation aerosol 2, puffs, Inhalation, Every 4 hours, PRN, # 18 Gm, Refills 0, Tot. Refills 0, Maintenance, 12/07/19 12:18:00 EDT, Aerosol, Route to Pharmacy Electronically, [id number], [facility]/pharmacy #[id number], 186.5, cm, 07/18/19 15:37:00 EST, He... Start Date: 12/07/19 Status: OrderedColace sodium 100 mg oral capsule 100 mg, 1, capsule, By Mouth, 2 times a day, PRN, # 60 capsule, Refills 6, Tot. Refills 6, Maintenance, for constipation, 09/16/20 7:33:00 EST, Route to Pharmacy Electronically, [facility]/pharmacy #[id number], Partial fill upon patient request [...]
--- OUTSIDE RECORDS SUMMARY | 2022-07-28 05:46 | XMS_ITS | Continuity of Care Document ---
:1985 Author Organization [facility] Adult Address [address] [place] [address]- Care Team Providers Name Role Phone Domingo Le MD Primary Care Physician En[facility] Date(s): 06/25/22 - 07/25/22 [facility] Adult [address] [place] [address]- Allergies, Adverse Reactions, Alerts No Known Allergies Immunizations Given and Recorded Vaccine Date Status Refusal Reason Hepatitis A Adult Vaccine1 08/08/14 Given Diphtheria/Tet/Pertussis, Acel (oldterm)2 08/08/14 Given Not Given Vaccine Date Status Refusal Reason Influenza Virus Vaccine (oldterm) 07/18/19 Not Given Patient Refuses Influenza Virus Vaccine (oldterm) 05/25/19 Not Given Patient Refuses 1Admin Note: at [id number] Note: at work Medications albuterol CFC free 90 mcg/inh inhalation aerosol 2, puffs, Inhalation, Every 4 hours, PRN, # 18 Gm, Refills 2, Tot. Refills 2, Maintenance, 09/30/21 11:59:00 EST, Aerosol, Route to Pharmacy Electronically, [id number], [facility]/pharmacy #[id number], 187.96, cm, 05/14/21 12:29:00 EDT, H... [...] Team PersonnelName: Mimi FARIA, Domingo Meléndez Position: [facility] Primary Care Physician Member Role: PCP Address: Address: [address] [place] [address] [place] Care Team Related PersonsName: PHIL SOTO Address: home [address] [facility], [id number]
--- OUTSIDE RECORDS SUMMARY | 2022-07-28 05:46 | XMS_ITS | Continuity of Care Document ---
:1985 Author Organization [facility] Adult Address [address] [place] [address]- Care Team Providers Name Role Phone Colton Godinez MD Primary Care Physician [facility]): [facility] - 04/11/20 [facility] Adult [address] [place] [address]- [facility] Encounter Diagnosis Acute bacterial prostatitis (Discharge Diagnosis) - 04/04/20 Attending Physician: Colton Godinez MD Allergies, Adverse Reactions, Alerts Substance Reaction Severity Status NKA Active Immunizations Given and Recorded Vaccine Date Status Refusal Reason Hepatitis A Adult Vaccine1 08/08/14 Given Diphtheria/Tet/Pertussis, Acel (oldterm)2 08/08/14 Given Not Given Vaccine Date Status Refusal Reason Influenza Virus Vaccine (oldterm) 07/18/19 Not Given Patient Refuses Influenza Virus Vaccine (oldterm) 05/25/19 Not Given Patient Refuses 1Admin Note: at [id number] Note: at work Medications albuterol CFC free 90 mcg/inh inhalation aerosol 2, puffs, Inhalation, Every 4 hours, PRN, # 18 Gm, Refills 0, Tot. Refills 0, Maintenance, 12/07/19 12:18:00 EDT, Aerosol, Route to Pharmacy Electronically, [id number], [facility]/pharmacy #[id number], 186.5, cm, 07/18/19 15:37:00 EST, He... Start Date: 12/07/19 Status: OrderedCipro 500 mg oral tablet 1 tablet = 500 mg, By Mouth, Every 12 hours, for 42 days, # 84 tablet, 0 Refills, Acute 05/16/20 11:53:00 EDT, 04/04/20 11:53:00 EDT, Tablet, [facility]/pharmacy #[id number], 186.5, cm, 04/04/20 9:56:00 EDT, Height [...] Dates Health Clinical Infor mant Status Service Acute bacterial Discharge 04/04/20 prostatitis Diagnosis Vital Signs Most recent to oldest [Reference Range]: 1 Height 186.5 cm (04/04/20 9:56 AM) Weight 102.4 kg (04/04/20 9:56 AM) Body Mass Index [18.5-24.99] 29.44 *H* (04/04/20 9:56 AM) Social History Social History Type Response Smoking Status Former smoker entered on: 12/30/15 Sex
--- OUTSIDE RECORDS SUMMARY | 2022-07-28 05:46 | XMS_ITS | Continuity of Care Document ---
:1985 Author Organization [facility] Adult Address [address] [place] [address]- Care Team Providers Name Role Phone Mimi FARIA, Domingo Meléndez Primary Care Physician [facility]s): 09/28/21 - 10/28/21 [facility] Adult [address] [place] [address]- Allergies, Adverse Reactions, Alerts No Known Allergies Immunizations Given and Recorded Vaccine Date Status Refusal Reason Hepatitis A Adult Vaccine1 08/08/14 Given Diphtheria/Tet/Pertussis, Acel (oldterm)2 08/08/14 Given Not Given Vaccine Date Status Refusal Reason Influenza Virus Vaccine (oldterm) 07/18/19 Not Given Patient Refuses Influenza Virus Vaccine (oldterm) 05/25/19 Not Given Patient Refuses 1Admin Note: at [id number] Note: at work Medications albuterol CFC free 90 mcg/inh inhalation aerosol 2, puffs, Inhalation, Every 4 hours, PRN, # 18 Gm, Refills 2, Tot. Refills 2, Maintenance, 09/30/21 11:59:00 EST, Aerosol, Route to Pharmacy Electronically, [id number], [facility]/pharmacy #[id number], 187.96, cm, 05/14/21 12:29:00 [...]
--- OUTSIDE RECORDS SUMMARY | 2022-07-28 05:46 | XMS_ITS | Continuity of Care Document ---
:1985 Author Organization [facility] Adult Address [address] [place] [address]- Care Team Providers Name Role Phone Herbert FARIA, Colton Ricardo Primary Care Physician [facility]s): 08/11/20 - 09/10/20 [facility] Adult [address] [place] [address]- Allergies, Adverse Reactions, Alerts Substance Reaction Severity Status NKA Active Immunizations Given and Recorded Vaccine Date Status Refusal Reason Hepatitis A Adult Vaccine1 08/08/14 Given Diphtheria/Tet/Pertussis, Acel (oldterm)2 08/08/14 Given Not Given Vaccine Date Status Refusal Reason Influenza Virus Vaccine (oldterm) 07/18/19 Not Given Patient Refuses Influenza Virus Vaccine (oldterm) 05/25/19 Not Given Patient Refuses 1Admin Note: at [id number] Note: at work Medications albuterol CFC free 90 mcg/inh inhalation aerosol 2, puffs, Inhalation, Every 4 hours, PRN, # 18 Gm, Refills 0, Tot. Refills 0, Maintenance, 12/07/19 12:18:00 EDT, Aerosol, Route to Pharmacy Electronically, [id number], [facility]/pharmacy #[id number], 186.5, cm, 07/18/19 15:37:00 EST, He... Start Date: 12/07/19 Status: OrderedMisc Rx nootropic- supplement 1 tab, [...]
--- OUTSIDE RECORDS SUMMARY | 2022-07-28 05:46 | XMS_ITS | Continuity of Care Document ---
:1985 Author Organization [address] [place] [address]- Care Team Providers Name Role Phone Colton Godinez MD Primary Care Physician [facility] Date[facility]s): 08/15/20 - 08/22/[address] [place] [address]- Encounter Diagnosis Hemorrhoids (Discharge Diagnosis) - 08/15/20 Attending Physician: Akilah Seth NP Referring Physician: Colton Godinez MD Allergies, Adverse Reactions, Alerts Substance Reaction Severity Status NKA Active Immunizations Given and Recorded Vaccine Date Status Refusal Reason Hepatitis A Adult Vaccine1 08/08/14 Given Diphtheria/Tet/Pertussis, Acel (oldterm)2 08/08/14 Given Not Given Vaccine Date Status Refusal Reason Influenza Virus Vaccine (oldterm) 07/18/19 Not Given Patient Refuses Influenza Virus Vaccine (oldterm) 05/25/19 Not Given Patient Refuses 1Admin Note: at [id number] Note: at work Medications albuterol CFC free 90 mcg/inh inhalation aerosol 2, puffs, Inhalation, Every 4 hours, PRN, # 18 Gm, Refills 0, Tot. Refills 0, Maintenance, 12/07/19 12:18:00 EDT, Aerosol, Route to Pharmacy Electronically, [id number], [facility]/pharmacy #[id number], 186.5, cm, 07/18/19 15:37:00 EST, [...] Dates Health Status Clinical Serv ice Informant Hemorrhoids Discharge 08/15/20 Diagnosis Vital Signs Most recent to oldest [Reference Range]: 1 Height 186.5 cm (08/15/20 8:38 AM) Weight 105.6 kg (08/15/20 8:38 AM) Pulse Rate [55-90 bpm] 72 bpm (08/15/20 8:38 AM) Body Mass Index [18.5-24.99] 30.36 *>HHI* (08/15/20 8:38 AM) Blood Pressure [90-138/55-84 mm Hg] 126/84 mm Hg (08/15/20 8:38 AM) Temperature [96.8-100.4 DegF] 98.8 DegF (08/15/20 8:38 AM) Blood pressure sites Arm, right (08/15/20 8:38 AM) Temperature Route Temporal (08/15/20 8:38 AM) Weight Obtained Via Standing scale (08/15/20 8:38 AM) Social History Social History Type Response Smoking Status Former smoker entered on: 12/30/15 Sex
--- OUTSIDE RECORDS SUMMARY | 2022-07-28 05:46 | XMS_ITS | Continuity of Care Document ---
:1985 Author Organization [facility] Address [address] [place] [address]- Care Team Providers Name Role Phone Colton Godinez MD Primary Care Physician [facility] Date[facility]s): 09/16/20 - 09/16/[address] [address] Discharge Disposition: A-D/C Home Attending Physician: Silvio Foss MD Admitting Physician: Silvio Foss MD Referring Physician: Silvio Foss MD Allergies, Adverse Reactions, Alerts Substance Reaction Severity Status NKA Active Immunizations Given and Recorded Vaccine Date Status Refusal Reason Hepatitis A Adult Vaccine1 08/08/14 Given Diphtheria/Tet/Pertussis, Acel (oldterm)2 08/08/14 Given Not Given Vaccine Date Status Refusal Reason Influenza Virus Vaccine (oldterm) 07/18/19 Not Given Patient Refuses Influenza Virus Vaccine (oldterm) 05/25/19 Not Given Patient Refuses 1Admin Note: at [id number] Note: at work Medications albuterol CFC free 90 mcg/inh inhalation aerosol 2, puffs, Inhalation, Every 4 hours, PRN, # 18 Gm, Refills 0, Tot. Refills 0, Maintenance, 12/07/19 12:18:00 EDT, Aerosol, Route to Pharmacy Electronically, [id number], [facility]/pharmacy #[id number], 186.5, cm, 07/18/19 15:37:00 EST, He... Start Date: 12/07/19 Status: OrderedColace sodium 100 mg oral capsule 100 mg, 1, capsule, By Mouth, 2 times a day, PRN, # 60 capsule, Refills 6, Tot. Refills 6, Maintenance, for constipation, 09/16/20 7:33:00 EST, Route to Pharmacy Electronically, [facility]/pharmacy #[id number], Partial fill upon patient request [...] II opioid drug. Start Date: 09/09/20 Status: OrderedoxyCODONE 5 mg oral tablet 5 mg, 1, tablet, By Mouth, Every 6 hours, PRN, for 7 days, # 28 tablet, Refills 0, Tot. Refills 0, Acute 09/23/20 7:33:00 EST, post op,pain, moderate, 09/16/20 7:33:00 EST, Route to Pharmacy Electronically, [facility]/pharmacy #[id number], Partial fill upon patien... Start Date: 09/16/20 Stop Date: 09/23/20 Status: OrderedValium 5 mg oral tablet 5 mg, 1, tablet, By Mouth, Every 8 hours, PRN, 1 TABLET EVERY 8 HOURS FOR ANAL SPASM DO NOT TAKE AT THE SAME TIME OXYCODONE, # 42 tablet, Refills 0, Tot. Refills 0, Maintenance, Spasm, 09/16/20 7:33:00 EST, Route to Pharmacy Electronically, [facility]/pha... Start Date: 09/16/20 Stop Date: 09/30/20 Status: [...] herniation - Active L4/5(Confirmed) Testicular mass(Confirmed) Active Vital Signs Most recent to oldest 1 2 3 [Reference Range]: Height 187.96 cm 187.96 cm (09/16/20 6:33 AM) (09/09/20 4:07 PM) Weight 98.4 kg 100.00 kg (09/16/20:33 AM) (09/09/20 4:07 PM) Oxygen Saturation [94-100 %] 100 % 100 % 100 % (09/16/20 8:45 AM) (09/16/20 8:30 AM) (09/16/20 6:33 A M) Pulse Rate [55-90 bpm] 76 bpm (09/16/20 6:33 AM) Body Mass Index [18.5-24.99] 27.85 28.31 *H* *H* (09/16/20:33 AM) (09/09/20 4:07 PM) Blood Pressure [90-138/55-84 147/105 mm Hg 147/105 mm Hg 110 /81 mm Hg mm Hg] *H* *H* (09/16/20:33 AM) (09/16/20 8:45 AM) (09/16/20 8:30 AM) Respiratory Rate [16-30 12 br/min 11 br/min 20 br/mi n br/min] *L* *L* (09/16/20 6:33 AM) (09/16/20 8:45 AM) (09/16/20 8:30 AM) Temperature [96.8-100.4 97.9 DegF 98.3 DegF 97.6 Deg F DegF] (09/16/20 9:30 AM) (09/16/20 8:30 AM) (09/16/20 6:33 A M) Mode of Delivery (Oxygen) Room air Room air Room a ir (09/16/20 9:30 AM) (09/16/20 8:45 AM) (09/16/20 8:30 A M) Blood pressure sites Arm, right Arm, right (09/16/20 8:30 AM) (09/16/20 6:33 AM) Temperature Route Temporal Temporal Temporal (09/16/20 9:30 AM) (09/16/20 8:30 AM) (09/16/20 6:33 A M) Dry Weight 98.4 kg 100.00 kg (2/9/21 6:33 AM) (09/09/20 4:07 PM) Weight Obtained Via Standing scale (09/16/20 6:33 AM) Dry Weight Obtained Via Standing scale Patient/family stated (09/16/20 6:33 AM) (09/09/20 4:07 PM) Social History Social History Type Response Smoking Status Former smoker entered on: 12/30/15 Sex
--- OUTSIDE RECORDS SUMMARY | 2022-07-28 05:46 | XMS_ITS | Continuity of Care Document ---
:1985 Author Organization [facility] Adult Address [address] [place] [address]- Care Team Providers Name Role Phone Mimi FARIA, Domingo Meléndez Primary Care Physician [facility]s): 09/30/21 - 10/30/21 [facility] Adult [address] [place] [address]- Attending Physician: Ronan Arana Admitting Physician: Ronan [...] Not Given Patient Refuses 1Admin Note: at [id number] Note: at work Medications albuterol CFC free 90 mcg/inh inhalation aerosol 2, puffs, Inhalation, Every 4 hours, PRN, # 18 Gm, Refills 2, Tot. Refills 2, Maintenance, 09/30/21 11:59:00 EST, Aerosol, Route to Pharmacy Electronically, [id number], [facility]/pharmacy #[id number], 187.96, cm, 05/14/21 12:29:00 EDT, [...]
--- OUTSIDE RECORDS SUMMARY | 2022-07-28 05:46 | XMS_ITS | Continuity of Care Document ---
:1985 Author Organization [facility] Adult Address [address] [place] [address]- Care Team Providers Name Role Phone Mimi FARIA, Domingo Meléndez Primary Care Physician Encounter [facility] Date(s): 09/30/21 - 10/07/21 [facility] Adult [address] [place] [address]- Encounter Diagnosis Cellulitis of umbilicus (Discharge Diagnosis) - 09/30/21 Attending Physician: Nicole Caceres Allergies, Adverse Reactions, Alerts No Known Allergies Immunizations Given and Recorded Vaccine Date Status Refusal Reason Hepatitis A Adult Vaccine1 08/08/14 Given Diphtheria/Tet/Pertussis, Acel (oldterm)2 08/08/14 Given Not Given Vaccine Date Status Refusal Reason Influenza Virus Vaccine (oldterm) 07/18/19 Not Given Patient Refuses Influenza Virus Vaccine (oldterm) 05/25/19 Not Given Patient Refuses 1Admin Note: at [id number] Note: at work Medications albuterol CFC free 90 mcg/inh inhalation aerosol 2, puffs, Inhalation, Every 4 hours, PRN, # 18 Gm, Refills 2, Tot. Refills 2, Maintenance, 09/30/21 11:59:00 EST, Aerosol, Route to Pharmacy Electronically, [id number], [facility]/pharmacy #[id number], 187.96, cm, 05/14/21 12:29:00 EDT, [...] Diagnosis Type Effective Dates Health Clinical Infor [facility] Status Service Cellulitis of Discharge 09/30/21 umbilicus Diagnosis Vital Signs Most recent to oldest [Reference Range]: 1 Height 187.96 cm (09/30/21 3:00 PM) Weight 99.0 kg (09/30/21 3:00 PM) Oxygen Saturation [94-100 %] 97 % (09/30/21 3:00 PM) Pulse Rate [55-90 bpm] 68 bpm (09/30/21 3:00 PM) Body Mass Index [18.5-24.99] 28.02 *H* (09/30/21 3:00 PM) Blood Pressure [90-138/55-84 mm Hg] 138/72 mm Hg (09/30/21 3:00 PM) Respiratory Rate [16-30 br/min] 16 br/min (09/30/21 3:00 PM) Temperature [96.8-100.4 DegF] 98.7 DegF (09/30/21 3:00 PM) Mode of Delivery (Oxygen) Room air (09/30/21 3:00 PM) Blood pressure sites Arm, right (09/30/21 3:00 PM) Temperature Route Oral (09/30/21 3:00 PM) Weight Obtained Via Standing scale (09/30/21 3:00 PM) Social History Social History Type Response Smoking Status Former smoker entered on: 12/30/15 Sex
--- OUTSIDE RECORDS SUMMARY | 2022-07-28 05:46 | XMS_ITS | Continuity of Care Document ---
:1985 Author Organization [facility] Adult Address [address] [place] [address]- Care Team Providers Name Role Phone Colton Godinez MD Primary Care Physician [facility] Date[facility]s): 05/14/21 - 05/21/21 [facility] Adult [address] [place] [address]- Encounter Diagnosis Tendinitis of left rotator cuff (Discharge Diagnosis) - 05/14/21 Attending Physician: Colton Godinez MD Allergies, Adverse Reactions, Alerts Substance Reaction Severity Status NKA Active Immunizations Given and Recorded Vaccine Date Status Refusal Reason Hepatitis A Adult Vaccine1 08/08/14 Given Diphtheria/Tet/Pertussis, Acel (oldterm)2 08/08/14 Given Not Given Vaccine Date Status Refusal Reason Influenza Virus Vaccine (oldterm) 07/18/19 Not Given Patient Refuses Influenza Virus Vaccine (oldterm) 05/25/19 Not Given Patient Refuses 1Admin Note: at [id number] Note: at work Medications albuterol CFC free 90 mcg/inh inhalation aerosol 2, puffs, Inhalation, Every 4 hours, PRN, # 18 Gm, Refills 0, Tot. Refills 0, Maintenance, 12/07/19 12:18:00 EDT, Aerosol, Route to Pharmacy Electronically, [id number], [facility]/pharmacy #[id number], 186.5, cm, 07/18/19 15:37:00 EST, He... [...] Infor mant Status Service Tendinitis of Discharge 05/14/21 left rotator cuff Diagnosis Vital Signs Most recent to oldest [Reference Range]: 1 Height 187.96 cm (05/14/21 12:29 PM) Weight 100.0 kg (05/14/21 12:29 PM) Body Mass Index [18.5-24.99] 28.31 *H* (05/14/21 12:29 PM) Weight Obtained Via Standing scale (05/14/21 12:29 PM) Social History Social History Type Response Smoking Status Former smoker entered on: 12/30/15 Sex
--- OUTSIDE RECORDS SUMMARY | 2022-07-28 05:47 | XMS_ITS | Continuity of Care Document ---
:1985 Author Organization [facility] Adult Address [address] [place] [address]- Care Team Providers Name Role Phone Domingo Le MD Primary Care Physician Encounter [facility] Date(s): 06/25/22 - 07/25/22 [facility] Adult [address] [place] [address]- Allergies, Adverse Reactions, Alerts No Known Allergies Immunizations Given and Recorded Vaccine Date Status Refusal Reason Hepatitis A Adult Vaccine1 08/08/14 Given Diphtheria/Tet/Pertussis, Acel (oldterm)2 08/08/14 Given Not Given Vaccine Date Status Refusal Reason Influenza Virus Vaccine (oldterm) 07/18/19 Not Given Patient Refuses Influenza Virus Vaccine (oldterm) 05/25/19 Not Given Patient Refuses 1Admin Note: at [id number] Note: at work Medications albuterol CFC free 90 mcg/inh inhalation aerosol 2, puffs, Inhalation, Every 4 hours, PRN, # 18 Gm, Refills 2, Tot. Refills 2, Maintenance, 09/30/21 11:59:00 EST, Aerosol, Route to Pharmacy Electronically, [id number], [facility]/pharmacy #[id number], 187.96, cm, 05/14/21 12:29:00 [...] Team PersonnelName: Mimi FARIA, Domingo Meléndez Position: [facility] Primary Care Physician Member Role: PCP Address: Address: [address] [place] [address] [place] Care Team Related PersonsName: PHIL SOTO Address: home [address], [id number]
--- OUTSIDE RECORDS SUMMARY | 2022-07-28 05:47 | XMS_ITS | Continuity of Care Document ---
:1985 Author Organization [facility] Adult Address [address] [place] [address]- Care Team Providers Name Role Phone Domingo Le MD Primary Care Physician [place] [facility] Date(s): 04/21/22 - 04/28/22 [facility] Adult [address] [place] [address]- Attending Physician: Domingo Le MD Allergies, Adverse Reactions, Alerts No Known Allergies Immunizations Given and Recorded Vaccine Date Status Refusal Reason Hepatitis A Adult Vaccine1 08/08/14 Given Diphtheria/Tet/Pertussis, Acel (oldterm)2 08/08/14 Given Not Given Vaccine Date Status Refusal Reason Influenza Virus Vaccine (oldterm) 07/18/19 Not Given Patient Refuses Influenza Virus Vaccine (oldterm) 05/25/19 Not Given Patient Refuses 1Admin Note: at [id number] Note: at work Medications albuterol CFC free 90 mcg/inh inhalation aerosol 2, puffs, Inhalation, Every 4 hours, PRN, # 18 Gm, Refills 2, Tot. Refills 2, Maintenance, 09/30/21 11:59:00 EST, Aerosol, Route to Pharmacy Electronically, [id number], [facility]/pharmacy #[id number], 187.96, cm, 05/14/21 12:29:00 EDT, H... Start Date: 09/30/21 Status: OrderedMultivitamin 1 tab, By Mouth, Daily, 0 Refills, Maintenance, 09/09/20 15:37:00 EST, Partial fill upon patient request if the prescription is for a schedule II opioid drug. 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 Left sided sciatica(Confirmed) Active Testicular mass(Confirmed) Active Procedures Procedure Date Related Diagnosis Body Site Status Hemorrhoidectomy1 Completed [address] Vital Signs Most recent to oldest [Reference Range]: 1 Height 187.96 cm (04/21/22 9:38 AM) Weight 101.5 kg (04/21/22 9:38 AM) Oxygen Saturation [94-100 %] 98 % (04/21/22 9:38 AM) Pulse Rate [55-90 bpm] 95 bpm *H* (04/21/22 9:38 AM) Body Mass Index [18.5-24.99] 28.73 *H* (04/21/22 9:38 AM) Blood Pressure [90-138/55-84 mm Hg] 94/68 mm Hg (04/21/22 9:38 AM) Mode of Delivery (Oxygen) Room air (04/21/22 9:38 AM) Blood pressure sites Arm, left (04/21/22 9:38 AM) Dry Weight Obtained Via Standing scale (04/21/22 9:38 AM) Social History Social History Type Response Smoking Status Former smoker entered on: 12/30/15 Sex Care Team PersonnelName: Domingo Le MD Address: [address] [place] [address]
--- OUTSIDE RECORDS SUMMARY | 2022-07-28 05:47 | XMS_ITS | Continuity of Care Document ---
:1985 Author Organization [facility] Address [address] [place] [address]- Care Team Providers Name Role Phone Herbert FARIA, Colton Ricardo Primary Care Physician [facility] Date[facility]s): 08/06/19 - 11/01/[address] [address]- [facility] Attending Physician: Silvio Foss MD Allergies, Adverse Reactions, Alerts Substance Reaction Severity Status NKA Active Immunizations Given and Recorded Vaccine Date Status Refusal Reason Hepatitis A Adult Vaccine1 08/08/14 Given Diphtheria/Tet/Pertussis, Acel (oldterm)2 08/08/14 Given Not Given Vaccine Date Status Refusal Reason Influenza Virus Vaccine (oldterm) 07/18/19 Not Given Patient Refuses Influenza Virus Vaccine (oldterm) 05/25/19 Not Given Patient Refuses 1Admin Note: at [id number] Note: at work Medications Azithromycin 5 Day [...]
[2022-07-28 05:48] LABS: Influenza A PCR POSITIVE (Negative); Influenza B PCR NEGATIVE (Negative); Resp Syncy Virus RNA Qual PCR NEGATIVE (Negative); SARS COV2 PCR INHOUSE NEGATIVE (Negative)
[2022-07-28] MEDS: guaiFEN/Codeine SF 200/20/10ML 10 ML LIQUID PO (06:21)
[2022-07-28] MEDS: dexAMETHasone 2 MG TABLET 10 MG PO (06:21)
== END 2022-07-28 06:26 | disposition home or self-care (01) ==
PROVIDERS: Emergency Provider Internal Medicine; PCP Internal Medicine
DX: J11.1 Influenza due to unidentified influenza virus with other respiratory manifestations (principal); Z20.822 Contact with and (suspected) exposure to COVID-19
CPT/HCPCS: 0241U; 99282; 99283; J8540